=== PATIENT | female | born 1980 | race Caucasian/White ===

== ENCOUNTER 2018-08-26 09:36 | Emergency (ER) | payer MEDICAID, OTHER ==
[~2018-08-26] VITALS: Ht 162.6 cm; Wt 99.0 kg
[~2018-08-26 09:36] MED LIST: MULT-516 PO
--- NOTE | 2018-08-26 10:42 | NUR ---
Pt to 36 from lobby
--- NOTE | 2018-08-26 10:55 | NUR ---
Assumed care of patient. C/O cough, congestion, and yellow/brown sputum x 2 weeks. Coarse lungs sounds throughout. Placed on NIBP and pulse ox. Son at bedside. Will continue to monitor.
--- NOTE | 2018-08-26 12:12 | NUR ---
Resting in [facility]. No needs.
[2018-08-26 13:15] VITALS: BP 114/74
--- NOTE | 2018-08-26 13:30 | NUR ---
Patient/Caregiver given discharge instructions and they have confirmed that they understand the instructions. Patient ambulatory with steady gait.
== END 2018-08-26 13:30 ==
LOC: ED 10:48
DX: H66.93 Otitis media, unspecified, bilateral (principal); J00 Acute nasopharyngitis [common cold]
CPT/HCPCS: 71046; 93005; 99283